=== PATIENT | female | born 1985 | race Caucasian/White ===

== ENCOUNTER 2022-10-05 15:43 | Outpatient (CLI) | payer BC, SELFPAY ==
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
== END 2022-10-05 15:44 | disposition home or self-care (01) ==
PROVIDERS: Visit Provider Nurse Practitioner Family
DX: H91.93 Unspecified hearing loss, bilateral (principal); J34.2 Deviated nasal septum; R09.81 Nasal congestion; H91.8X9 Other specified hearing loss, unspecified ear; H71.02 Cholesteatoma of attic, left ear; S01.83XD Puncture wound without foreign body of other part of head, subsequent encounter
CPT/HCPCS: 70480